=== PATIENT | female | born 1975 | race Two or more races ===

== ENCOUNTER 2024-08-16 10:29 | Emergency (ER) | payer SELFPAY ==
[2024-08-16] VITALS (11 sets, daily range): BP systolic 127–185; BP diastolic 74–95; PULSE 51–76; RESP 15–19; TEMP 36.4–37.1; O2SAT 98–100; BMI 31.6
--- NOTE | 2024-08-16 | XR_ITS ---
MRI abdomen, without contrast. MRCP Date and time of exam: August 16, 2024 1519 hours INDICATIONS: Right upper abdominal pain beginning 24 hours ago enlarged common bile duct on gallbladder sonogram August 16, 2024 Technique: Multiple axial and coronal images of the abdomen have been obtained with the Siemens 1.5T MRI scanner. Images obtained included T1 weighted transverse images, T2-weighted transverse images, T2-weighted transverse images fat-suppressed, T2 weighted haste fat suppressed transverse images, T1 weighted images, in and out of phase images, T2-weighted coronal images, breath hold, T2 weighted haze coronal images as well as T2 weighted coronal thick slab images, MRCP. Findings: Liver 18.8 cm Cholelithiasis, no gallbladder wall edema Common bile duct 6 mm 4 mm filling defect in the distal common bile duct on the 3-D reconstructions and possible additional linear sludge in the common bile duct No hydronephrosis Spleen not enlarged No ascites IMPRESSION: Cholelithiasis 4 mm stone in the common bile duct, suggest ERCP follow-up
--- NOTE | 2024-08-16 11:00 | XR_ITS ---
Examination: Abdomen sonogram, Limited Date and time of exam: August 16, 2024 1216 hours INDICATIONS: Onset right upper abdominal pain beginning 2 days ago, history gallstones Technique: Real-time felix scale transabdominal sonographic images of the upper abdomen obtained. Findings: Multiple gallstones,, gallbladder sludge Gallbladder wall 0.35 cm Common bile duct enlarged 0.7 cm no definite stones Pancreatic head 2.5 cm Liver 17.8 cm fatty infiltration Normal hepatopedal portal venous oh Patent IVC IMPRESSION: Cholelithiasis, negative for cholecystitis Enlarged common bile duct 0.7 cm, if biliary colic is a clinical consideration, recommend MRCP follow-up
--- NOTE | 2024-08-16 11:01 | PD.EDABDPN ---
ED Abdominal Pain RME/HPI General Chief Complaint: Abdominal Pain Stated complaint: RUQ ABD PAIN RADIATING TO BACK X 1 DAY Arrival date/time: 08/16/24 10:29 48-year-old female with no known medical history presents to the emergency room with a chief complaint of pain and tenderness to the right upper quadrant x 1 day Source: patient Mode of arrival: ambulatory Limitations: no limitations Related Data Allergies Allergy/AdvReac Type Severity Reaction Status Date / Time No Known Allergies Allergy Verified 08/16/24 10:32 Review of Systems Review of Systems Systems Reviewed: All systems reviewed, normal except as documented Constitutional Constitutional: Reports system reviewed and no additional complaints, except as documented, Denies fatigue, Denies fever(s), Denies headache(s) and Denies weakness Eyes Eyes: Reports system reviewed and no additional complaints, except as documented, Denies blurry vision and Denies change in vision ENT Ears, Nose, Mouth, and Throat: Reports system reviewed and no additional complaints, except as documented, Denies otalgia, Denies headache(s), Denies nasal congestion, Denies throat swelling and Denies vertigo Cardiovascular Cardiovascular: Reports system reviewed and no additional complaints, except as documented, Denies chest pain, Denies dyspnea and Denies dyspnea on exertion Respiratory Respiratory: Reports system reviewed and no additional complaints, except as documented, Denies chest congestion, Denies cough, Denies dyspnea, Denies dyspnea on exertion and Denies wheezing Gastrointestinal Gastrointestinal: Reports system reviewed and no additional complaints, except as documented, Reports abdominal pain, Reports cramping, Reports dyspepsia, Reports nausea and Denies vomiting Genitourinary Genitourinary: Reports system reviewed and no additional complaints, except as documented Musculoskeletal Musculoskeletal: Reports system reviewed and no additional complaints, except as documented and Denies back pain Integumentary/Breasts Skin/Breast: Reports system reviewed and no additional complaints, except as documented and Denies wounds Neurologic Neurologic: Reports system reviewed and no additional complaints, except as documented, Denies confusion, Denies headache(s), Denies lack of coordination, Denies vertigo and Denies weakness Psychiatric Psychiatric: Reports system reviewed and no additional complaints, except as documented, Denies anxiety, Denies confusion, Denies depression, Denies paranoia, Denies suicidal ideation and Denies tactile hallucinations Endocrine Endocrine: Reports system reviewed and no additional complaints, except as documented and Denies fatigue Hematologic/Lymphatic Hematologic/Lymphatic: Reports system reviewed and no additional complaints, except as documented and Denies lymphadenopathy Allergic/Immunologic Allergic/Immunologic: Reports system reviewed and no additional complaints, except as documented, Denies throat swelling, Denies urticaria and Denies wheezing ED Exam General Limitations: Present no limitations General appearance: Present alert and in no apparent distress Head Head exam: Present atraumatic Eye Eye exam: Present normal appearance, PERRL and EOMI ENT ENT exam: Present normal exam, normal oropharynx and mucous membranes moist Neck Neck exam: Present normal inspection, full ROM and trachea midline Chest Chest inspection: Present normal inspection and symmetric chest wall rise Respiratory Respiratory exam: Present normal lung sounds bilaterally Cardiovascular Cardiovascular exam: Present regular rate, normal rhythm and normal heart sounds Abdominal Exam Abdominal exam: Present soft, tenderness, guarding, normal bowel sounds and Live's sign; Absent distention, rebound or rigidity Abdominal tenderness: Present RUQ and moderate Extremities Exam Extremities exam: Present normal inspection and full ROM Back Exam Back exam: Present normal inspection and full ROM Neurological Exam Neurological exam: Present alert, oriented X3 and CN II-XII intact Psychiatric Psychiatric exam: Present normal affect and normal mood Skin Skin exam: Present warm, dry, intact and normal color Course Quality Measures none Orders Category Date Time Status US gall bladder Stat Exams 08/16/24 11:00 Ordered CBC Stat Lab 08/16/24 11:16 Received CMP [Comprehensive Metabolic Panel] Stat Lab 08/16/24 11:16 Received HCG Qualitative,Urine Stat Lab 08/16/24 11:00 Ordered Lipase Stat Lab 08/16/24 11:16 Received UA [Urinalysis] Stat Lab 08/16/24 11:00 Ordered Urine Culture Stat Lab 08/16/24 11:00 Ordered HYDROcodone*/APAP 5/325 [[place] 5/325] Med 08/16/24 11:00 Discontinued 1 tab PO X1 ONE Ondansetron Odt [Zofran Odt] Med 08/16/24 11:00 Discontinued 4 mg PO X1 ONE Vital Signs Vital signs: Vital Signs Temperature 98.7 F 08/16/24 10:51 Pulse Rate 76 08/16/24 10:51 Respiratory Rate 18 08/16/24 10:51 Blood Pressure 127/78 08/16/24 10:51 Pulse Oximetry (%) 99 08/16/24 10:51 Oxygen Delivery Method Room Air 08/16/24 10:51 O2 saturation 99% within normal limits Abdominal Pain MDM MDM Narrative MDM Narrative:: 48-year-old female with no known medical history presents to the emergency room with a chief complaint of pain and tenderness to the right upper quadrant x 1 day Patient data External records reviewed:: [facility] previous records Clinical information provided by:: patient Social determinants that could affect healthcare access:: none Patient has the following chronic illnesses:: No chronic illness How is presenting disease/condition affected by chronic disease/condition?: no chronic disease Evaluation data The following diagnostics were reviewed and interpreted by me:: lab results and radiology exam(s) Lab and/or radiology exams considered but not ordered:: Labs and radiology exams considered and ordered Interpretation Summary: Ultrasound gallbladder- Medications / Prescriptions Medications or Prescriptions considered but not ordered:: Medication given Medication administrations:: Medication Administration History Discontinued Medications Hydrocodone Bitart/Acetaminophen (Hydrocodone/Apap 5/325 Tablet) 1 tab PO X1 ONE Stop: 08/16/24 11:01 Last Admin: 08/16/24 11:12 Dose: 1 tab Documented By: TRUDY Ondansetron HCl (Ondansetron Odt 4 Mg Tabrap) 4 mg PO X1 ONE; Protocol Stop: 08/16/24 11:01 Last Admin: 08/16/24 11:11 Dose: 4 mg Documented By: TRUDY Medication given Consultations Consultation(s) initiated? (list below): No Diagnosis Differential diagnosis abdominal pain: abdominal pain, gastroenteritis and other (Cholelithiasis/cholecystitis) Admission Indicated Admission indicated?: not indicated Admission Request Was there a request for admission?: No Disposition Plan Disposition Plan: Discharge Discharge Attestation Discharge Attestation: The patient and all family members were given an opportunity to ask questions and understood the discharge instructions. Discharge instructions specifically effects, indications for sooner follow up or return to the emergency department, and the expected course of current diagnosis. Patient condition: Stable Discharge Plan Patient/Caregiver Discharge Instructions Print Language: Vietnamese
[2024-08-16] MEDS: ONDANSETRON ODT 4 MG TABRAP PO (11:11)
[2024-08-16] MEDS: HYDROcodone/APAP 5/325 TABLET 1 TAB PO (11:12)
[2024-08-16 11:32] LABS: Basophils # (Auto) 0.1 Thou/mm3 (0.0-0.2); Basophils % (Auto) 1 % (0-2.5); Eosinophils # (Auto) 0.1 Thou/mm3 (0.0-0.5); Eosinophils % (Auto) 1 % (0-10); Hematocrit 20.6 % (36.0-46.0); Immature Granulocytes % (Auto) 0 % (0-0); Immature Granulocytes Auto 0.02 Thou/mm3 (0.00-0.00); Lymphocytes # (Auto) 2.4 Thou/mm3 (1.0-4.8); Lymphocytes % (Auto) 31 % (10-50); Mean Corpuscular HGB Conc 24.3 g/dl (31.0-37.0); Mean Corpuscular Volume 53 fL (80-100); Monocytes # (Auto) 0.5 Thou/mm3 (0.0-0.8); Monocytes % (Auto) 6 % (0-12); Neutrophils # (Auto) 4.8 Thou/mm3 (1.8-7.7); Neutrophils % (Auto) 62 % (37-80); Nucleated Red Blood Cell # 0.04 Thou/mm3 (0.00-0.00); Nucleated Red Blood Cell % 1 /100 WBC (0); Platelet Count 435 Thou/mm3 (140-440); RDW Standard Deviation 43.1 fL (36.4-46.3); Red Blood Count 3.86 Miln/mm3 (4.00-5.20); White Blood Count 7.7 Thou/mm3 (3.6-11.0)
--- NOTE | 2024-08-16 11:42 | PD.EDRME ---
Rapid Medical Screening Exam RME Arrival date/time: 08/16/24 10:29 48-year-old female with no known medical history presents to the emergency room with a chief complaint of pain and tenderness to the right upper quadrant x 1 day I have greeted and performed a focused initial assessment of this patient. A comprehensive ED assessment and evaluation of the patient, analysis of all test results, and completion of the medical decision making process will be conducted by additional ED providers. Chief Complaint: Abdominal Pain Time Seen by Provider: 08/16/24 11:31 Vital signs: Vital Signs Temperature 98.7 F 08/16/24 10:51 Pulse Rate 76 08/16/24 10:51 Respiratory Rate 18 08/16/24 10:51 Blood Pressure 127/78 08/16/24 10:51 Pulse Oximetry (%) 99 08/16/24 10:51 Oxygen Delivery Method Room Air 08/16/24 10:51 Vital signs reviewed by provider: Yes
[2024-08-16 11:48] LABS: Alanine Aminotransferase 64 U/L (10-49); Albumin, Serum 4.5 gm/dL (3.5-5.0); Albumin/Globulin Ratio 1.3 (1.2-2.2); Alkaline Phosphatase 263 U/L (46-116); Anion Gap 10 (7-16); Aspartate Amino Transferase 174 U/L (0-34); BUN/Creatinine Ratio 18 Ratio (12-20); Bilirubin,Total 1.4 mg/dL (0.3-1.2); Blood Urea Nitrogen 9 mg/dL (9-23); Calcium 10.1 mg/dL (8.3-10.6); Calcium (Corrected) 10.1 mg/dL (8.5-10.1); Carbon Dioxide 24.9 mMol/L (20.0-31.0); Chloride 106 mMol/L (98-107); Creatinine (Component) 0.5 mg/dL (0.6-1.3); Estimated Creatinine Clearance 145.9 mL/min (>60); Globulin 3.5 gm/dL (2.3-3.5); Glucose 114 mg/dL (74-106); Lipase 33 U/L (12-53); Osmolality,Calculated 280 (275-295); Potassium 3.8 mMol/L (3.4-5.1); Sodium 141 mMol/L (136-145); eGFR > 60 See Note
[2024-08-16 13:08] LABS: INR 1.1 (0.9-1.3); Partial Thromboplastin Time 25.1 Seconds (22.0-36.0); Prothrombin Time 11.7 Seconds (9.0-12.2)
--- NOTE | 2024-08-16 13:34 | PD.EDADULT ---
ED General RME/HPI General Chief complaint: Abdominal Pain Stated complaint: RUQ ABD PAIN RADIATING TO BACK X 1 DAY Time Seen by Provider: 08/16/24 11:31 Arrival date/time: 08/16/24 10:29 CC: Right upper quadrant abdominal pain HPI ongoing for the past 24 hours radiates to the back. 4-6 on a 10 scale. Prior history of similar events 2 years ago that was resolved with viscous lidocaine and Maalox. No prior visits to this emergency room. Patient also admits that she has been tired , and not a napping type person . However in the last several months she has been more tired taking frequent naps, particularly worse in the last 2 days. Patient mitts that she has a history of anemia when off her iron pills approximately 4 years ago. Patient currently denies any chest pain shortness of breath or difficulty breathing. RME / HPI RME / HPI narrative: 08/16/24 10:29 48-year-old female with no known medical history presents to the emergency room with a chief complaint of pain and tenderness to the right upper quadrant x 1 day I have greeted and performed a focused initial assessment of this patient. A comprehensive ED assessment and evaluation of the patient, analysis of all test results, and completion of the medical decision making process will be conducted by additional ED providers. Related Data Allergies Allergy/AdvReac Type Severity Reaction Status Date / Time No Known Allergies Allergy Verified 08/16/24 10:32 Review of Systems Review of Systems Narrative Review of Systems: GEN: No fever, no chills, no weight loss EYES: No discharge, no visual changes, no pain HEENT: No ear pain, no congestion, no sore throat PULM: No shortness of breath, no cough, no congestion CV: No chest pain, no dyspnea on exertion, no palpitations GI: No nausea, no vomiting, no diarrhea, + pain, no constipation : No frequency, no urgency, no dysuria MUSC/SKEL: No joint pain, no back pain SKIN: No rash PSYCH: No hallucinations, no depression HEME/LYMPH: No easy bleeding or bruising tendencies NEURO: + weakness, no headache Past Medical History Social History SMOKING STATUS: Never smoker ED Exam Narrative Physical exam: [General: Obese not in any acute distress Head normocephalic HEENT: Within acceptable limits Neck is supple nontender Chest equal chest rise nontender to palpation Respiratory: Clear to auscultation no wheezes crackles or rubs CV: Rate rhythm is regular no murmurs rubs or clicks Abdomen is distended secondary to body habitus soft nontender no masses positive bowel sounds all 4 quadrants Rectum: Good rectal tone internal hemorrhoid guaiac is negative. Back: No CVA tenderness no spinous process tenderness from cervical spine thoracic and lumbar spine Skin: Pale, blanched conjunctiva otherwise skin is intact no petechiae rash induration ulceration or crepitus Extremities: Moving all extremity against resistance cap refill less than 2 seconds neurosensory intact Neuro: Awake alert oriented x3 Glascow coma 15 no focal deficits] Course Quality Measures none Orders Category Date Time Status MRI Screening NOW Care 08/16/24 13:30 Completed Occult Blood,Stool (Nursing) ONCE Care 08/16/24 14:47 Completed Transfuse,blood/blood products NOW Care 08/16/24 13:31 Completed Transfer to another facility [Transfer/Discharge] Stat Discharge 08/16/24 17:14 Active MR MRCP Stat Exams 08/16/24 Completed US gall bladder Stat Exams 08/16/24 11:00 Completed CBC Stat Lab 08/16/24 11:16 Completed CMP [Comprehensive Metabolic Panel] Stat Lab 08/16/24 11:16 Completed HCG Qualitative,Urine Stat Lab 08/16/24 20:35 Completed Lipase Stat Lab 08/16/24 11:16 Completed Occult Blood, Stool (LAB) Routine Lab 08/16/24 13:30 Completed PT [Prothrombin Time with INR] Stat Lab 08/16/24 12:30 Completed PTT [Partial Thromboplastin Time] Stat Lab 08/16/24 12:30 Completed Type and Screen Stat Lab 08/16/24 12:30 Completed UA [Urinalysis] Stat Lab 08/16/24 20:35 Completed Urine Culture Stat Lab 08/16/24 20:35 Received prbc [Red Blood Cells] Stat Lab 08/16/24 12:30 Completed HYDROcodone*/APAP 5/325 [[place] 5/325] Med 08/16/24 11:00 Discontinued 1 tab PO X1 ONE Lidocaine 2% Viscous [Xylocaine 2% Viscous] Med 08/16/24 13:29 Discontinued 15 ml PO X1 ONE Ondansetron Odt [Zofran Odt] Med 08/16/24 11:00 Discontinued 4 mg PO X1 ONE mg Hyd/Al Hyd/Amber Susp [Maalox Susp] Med 08/16/24 13:29 Discontinued 30 ml PO X1 ONE Vital Signs Vital signs: Vital Signs Temperature 98.7 F 08/16/24 10:51 Pulse Rate 76 08/16/24 10:51 Respiratory Rate 18 08/16/24 10:51 Blood Pressure 127/78 08/16/24 10:51 Pulse Oximetry (%) 99 08/16/24 10:51 Oxygen Delivery Method Room Air 08/16/24 10:51 [facility] Patient data External records reviewed:: [facility] previous records Clinical information provided by:: patient Social determinants that could affect healthcare access:: none Patient has the following chronic illnesses:: Anemia How is presenting disease/condition affected by chronic disease/condition?: exacerbated by Evaluation data The following diagnostics were reviewed and interpreted by me:: lab results, radiology exam(s) and EKG tracing(s) Lab and/or radiology exams considered but not ordered:: CT shows WBCs of 7.7 and a significant anemia with a hemoglobin of 5.0 and a crit of 20.6 platelets are normal. Coags within acceptable limits CMP shows no acute electrolyte imbalances renal impairment transaminitis is mildly elevated and T. bili is 1.4 Gallbladder ultrasound shows cholelithiasis without cholecystitis. Lipase is within normal limits MRCP shows choledocholithiasis at 0.4 mm. Interpretation Summary: Patient needs an ERCP and agrees to transfer. In the meantime the patient has been transfused with 2 units of match blood. Symptoms have resolved in the meantime. Medications Medications considered but not ordered:: None Medication administrations:: Medication Administration History Discontinued Medications Hydrocodone Bitart/Acetaminophen (Hydrocodone/Apap 5/325 Tablet) 1 tab PO X1 ONE Stop: 08/16/24 11:01 Last Admin: 08/16/24 11:12 Dose: 1 tab Documented By: MP Al Hydrox/Mg Hydrox/Simethicone (Mg Hyd/Al Hyd/Amber (Maalox Reg) Susp 30 Ml Udc) 30 ml PO X1 ONE Stop: 08/16/24 13:30 Last Admin: 08/16/24 14:53 Dose: 30 ml Documented By: BD Lidocaine HCl (Lidocaine Viscous 2% 15 Ml Udc) 15 ml PO X1 ONE Stop: 08/16/24 13:30 Last Admin: 08/16/24 14:53 Dose: 15 ml Documented By: BD Ondansetron HCl (Ondansetron Odt 4 Mg Tabrap) 4 mg PO X1 ONE; Protocol Stop: 08/16/24 11:01 Last Admin: 08/16/24 11:11 Dose: 4 mg Documented By: MP None Consultations Consultation(s) initiated? (list below): No Diagnosis Differential Diagnosis ED Complaint MDM: Cholecystitis choledocholithiasis pancreatitis Most likely diagnosis given after review of the tests above:: Choledocholithiasis Admission Indicated Admission indicated?: not indicated Explain why admission is indicated or not indicated:: Patient need transfer Admission Request Was there a request for admission?: No Disposition Plan Disposition Plan: Transfer Medical Decision Making Differential Diagnosis Differential Diagnosis: Cholecystitis choledocholithiasis pancreatitis Lab Data 08/16/24 11:16 08/16/24 11:16 Labs: Lab Results 08/16/24 08/16/24 08/16/24 Range/Units 11:16 12:30 13:30 WBC 7.7 (3.6-11.0) Thou/mm3 RBC 3.86 L (4.00-5.20) Miln/mm3 Hgb 5.0 L* (12.0-16.0) g/dL Hct 20.6 L* (36.0-46.0) % MCV 53 L (80-100) fL MCH 13.0 L (25.0-35.0) pg MCHC 24.3 L (31.0-37.0) g/dl RDW Std Deviation 43.1 (36.4-46.3) fL Plt Count 435 (140-440) Thou/mm3 Neut % (Auto) 62 (37-80) % Lymph % (Auto) 31 (10-50) % Gaines % (Auto) 6 (0-12) % Eos % (Auto) 1 (0-10) % Baso % (Auto) 1 (0-2.5) % Neut # (Auto) 4.8 (1.8-7.7) Thou/mm3 Lymph # (Auto) 2.4 (1.0-4.8) Thou/mm3 Gaines # (Auto) 0.5 (0.0-0.8) Thou/mm3 Eos # (Auto) 0.1 (0.0-0.5) Thou/mm3 Baso # (Auto) 0.1 (0.0-0.2) Thou/mm3 Immature Gran # (Auto) 0.02 H (0.00-0.00) Thou/mm3 Absolute Nucleated RBC 0.04 H (0.00-0.00) Thou/mm3 Immature Gran % 0 (0-0) % Nucleated RBC % 1 H (0) /100 WBC PT 11.7 (9.0-12.2) Seconds INR 1.1 (0.9-1.3) APTT 25.1 (22.0-36.0) Seconds Sodium 141 (136-145) mMol/L Potassium 3.8 (3.4-5.1) mMol/L Chloride 106 (98-107) mMol/L Carbon Dioxide 24.9 (20.0-31.0) mMol/L Anion Gap 10 (7-16) BUN 9 (9-23) mg/dL Creatinine 0.5 L (0.6-1.3) mg/dL Estim Creat Clear Calc 145.9 (>60) mL/min eGFR > 60 (60 - ) See Note BUN/Creatinine Ratio 18 (12-20) Ratio Glucose 114 H (74-106) mg/dL Calculated Osmolality 280 (275-295) Calcium 10.1 (8.3-10.6) mg/dL Corrected Calcium 10.1 (8.5-10.1) mg/dL Total Bilirubin 1.4 H (0.3-1.2) mg/dL AST 174 H (0-34) U/L ALT 64 H (10-49) U/L Alkaline Phosphatase 263 H (46-116) U/L Total Protein 8.0 (5.7-8.2) gm/dL Albumin 4.5 (3.5-5.0) gm/dL Globulin 3.5 (2.3-3.5) gm/dL Albumin/Globulin Ratio 1.3 (1.2-2.2) Lipase 33 (12-53) U/L Ur Collection Type Urine Color (Lt Yel-Yel) Urine Clarity (Clear/Hazy) Urine pH (5.0-7.0) Ur Specific Protem (1.001-1.035) Urine Protein (Neg - Trace) Urine Glucose (UA) (Negative) Urine Ketones (Negative) Urine Blood (Negative) Urine Nitrite (Negative) Urine Bilirubin (Negative) Urine Urobilinogen (Auto) (0.0-1.0) mg/dL Ur Leukocyte Esterase (Negative) Urine RBC (0-3) /hpf Urine WBC (0-5) /hpf Ur Squamous Epith Cells (0-5) /hpf Urine Bacteria (None) Urine HCG, Qual Stool Occult Blood Negative (Negative) Blood Type O Positive Antibody Screen NEGATIVE Crossmatch See Detail Blood Bank Wristband ID Yes 08/16/24 Range/Units 20:35 WBC (3.6-11.0) Thou/mm3 RBC (4.00-5.20) Miln/mm3 Hgb (12.0-16.0) g/dL Hct (36.0-46.0) % MCV (80-100) fL MCH (25.0-35.0) pg MCHC (31.0-37.0) g/dl RDW Std Deviation (36.4-46.3) fL Plt Count (140-440) Thou/mm3 Neut % (Auto) (37-80) % Lymph % (Auto) (10-50) % Gaines % (Auto) (0-12) % Eos % (Auto) (0-10) % Baso % (Auto) (0-2.5) % Neut # (Auto) (1.8-7.7) Thou/mm3 Lymph # (Auto) (1.0-4.8) Thou/mm3 Gaines # (Auto) (0.0-0.8) Thou/mm3 Eos # (Auto) (0.0-0.5) Thou/mm3 Baso # (Auto) (0.0-0.2) Thou/mm3 Immature Gran # (Auto) (0.00-0.00) Thou/mm3 Absolute Nucleated RBC (0.00-0.00) Thou/mm3 Immature Gran % (0-0) % Nucleated RBC % (0) /100 WBC PT (9.0-12.2) Seconds INR (0.9-1.3) APTT (22.0-36.0) Seconds Sodium (136-145) mMol/L Potassium (3.4-5.1) mMol/L Chloride (98-107) mMol/L Carbon Dioxide (20.0-31.0) mMol/L Anion Gap (7-16) BUN (9-23) mg/dL Creatinine (0.6-1.3) mg/dL Estim Creat Clear Calc (>60) mL/min eGFR (60 - ) See Note BUN/Creatinine Ratio (12-20) Ratio Glucose (74-106) mg/dL Calculated Osmolality (275-295) Calcium (8.3-10.6) mg/dL Corrected Calcium (8.5-10.1) mg/dL Total Bilirubin (0.3-1.2) mg/dL AST (0-34) U/L ALT (10-49) U/L Alkaline Phosphatase (46-116) U/L Total Protein (5.7-8.2) gm/dL Albumin (3.5-5.0) gm/dL Globulin (2.3-3.5) gm/dL Albumin/Globulin Ratio (1.2-2.2) Lipase (12-53) U/L Ur Collection Type Clean Catch Urine Color Yellow (Lt Yel-Yel) Urine Clarity Turbid A (Clear/Hazy) Urine pH 6.5 (5.0-7.0) Ur Specific Protem 1.012 (1.001-1.035) Urine Protein Negative (Neg - Trace) Urine Glucose (UA) Negative (Negative) Urine Ketones Negative (Negative) Urine Blood Negative (Negative) Urine Nitrite Negative (Negative) Urine Bilirubin Negative (Negative) Urine Urobilinogen (Auto) 2.0 (0.0-1.0) mg/dL Ur Leukocyte Esterase Negative (Negative) Urine RBC 3 (0-3) /hpf Urine WBC 4 (0-5) /hpf Ur Squamous Epith Cells 1 (0-5) /hpf Urine Bacteria Rare (None) Urine HCG, Qual Negative Stool Occult Blood (Negative) Blood Type Antibody Screen Crossmatch Blood Bank Wristband ID Discharge Plan Plan Patient Disposition: Xfer Acute Care [facility] Pt Being Transferred to: [facility] Prescriptions/Referrals Referrals: Tai Rodríguez MD [Primary Care Provider] - In 1 week Problem List Clinical Impression: Choledocholithiasis, Anemia, Right upper quadrant abdominal pain Patient/Caregiver Discharge Instructions Print Language: Montserratian Stand Alone Forms: Shirley Award Info., Patient Portal Info Letter
--- NOTE | 2024-08-16 13:49 | PC.NURSE ---
PT CAME IN TO ER LOBBY FOR GALLBLADDER PAIN SINCE LAST NIGHT, PAIN RIGHT SIDE RADIATES TO BACK. PT IS HERE WITH DAUGHTER AT BEDSIDE. PT WAS ADVISED HGB IS LOW AND CONSENT TO BLOOD AND CONSENT WAS SIGNED. OCCULT BLOOD DONE BY PROVIDER AND IS NEG.
[2024-08-16] MEDS: MG HYD/AL HYD/SIME (Maalox Reg) SUSP 30 ML UDC PO (14:53)
[2024-08-16] MEDS: LIDOCAINE VISCOUS 2% 15 ML UDC PO (14:53)
--- NOTE | 2024-08-16 17:13 | PC.CC ---
Addendum entered by Pepito Perez RN 08/16/24 19:36: [address] [facility] through [facility]. Called [facility], spoke to Yaneli and set up the transport. The chart picker time is 2100. Addendum entered by Pepito Perez RN 08/16/24 19:31: 1920 transfer packet is complete with CD inside including all signatures. Notified bedside nurse of the transfer packet and number to call for report. Addendum entered by Pepito Perez RN 08/16/24 18:59: 1856 received call from [facility], spoke to Amena that pt is accepted for ED to ED transfer. Accepted by Dr. Ed Hale. Call report at [phone]. Addendum entered by Pepito Perez RN 08/16/24 18:35: 1829 called [facility], spoke to Amena and initiated the transfer. Amena want to speak to Atif Lopez. Call transferred. Addendum entered by Pepito Perez RN 08/16/24 18:18: 1818 images pushed over to [facility] through [employer]. Addendum entered by Pepito Perez RN 08/16/24 18:17: 1816 clinicals sent to [facility]. Addendum entered by Pepito Perez RN 08/16/24 18:02: 1801 Called [facility] to follow up on the transfer, left VM. Addendum entered by Pepito Perez RN 08/16/24 17:39: 1736 Called [facility], spoke to Wendie to initiate the transfer. Wendie stated she will call me back after reviewing the clinicals. Addendum entered by Pepito Perez RN 08/16/24 17:31: 1731 clinicals sent to [facility]. Addendum entered by Pepito Perez RN 08/16/24 17:29: 1728 received call from [facility], spoke to Torri. She stated they are declining the pt due to capacity, they are in red zone and only taking stemi, strokes or traumas. Original Note: 1724 called [facility] to initiate the transfer, left VM. 1718 clinicals sent to [facility]. 1713 received call from ED charge nurse that pt needs to be transferred for choledocholithiasis need ERCP/GI services.
[2024-08-16 20:46] LABS: Collection Type, Urine Clean Catch
[2024-08-16 20:50] LABS: HCG Qualitative,Urine Negative
--- NOTE | 2024-08-16 20:58 | PC.NURSE ---
report called via telephone to godfrey gutierres
[2024-08-16 21:06] LABS: Bacteria,Urine Rare; Bilirubin,Urine Negative (Negative); Blood,Urine Negative (Negative); Clarity,Urine Turbid (Clear/Hazy); Color,Urine Yellow (Lt Yel-Yel); Glucose, Urine Negative (Negative); Ketones,Urine Negative (Negative); Leukocyte Esterase,Urine Negative (Negative); Nitrite,Urine Negative (Negative); PH,Urine 6.5 (5.0-7.0); Protein,Urine Negative (Neg - Trace); RBC,Urine 3 /hpf (0-3); Specific Gravity,Urine 1.012 (1.001-1.035); Squamous Epithelial Cell,Urine 1 /hpf (0-5); WBC,Urine 4 /hpf (0-5)
[2024-08-17 09:31] LABS: OBS QC OK? Yes
[2024-08-17 09:41] LABS: Occult Blood, Stool Negative (Negative)
[2024-08-17 09:42] LABS: OBS Performed By DS
== END 2024-08-16 21:40 | disposition short-term general hospital (02) ==
LOC: SERX 11:59
PROVIDERS: Nurse Practitioner Family; Emergency Provider Emergency Medicine; PCP Family Medicine
DX: D64.9 Anemia, unspecified (principal); K80.50 Calculus of bile duct without cholangitis or cholecystitis without obstruction; Z75.1 Person awaiting admission to adequate facility elsewhere
CPT/HCPCS: 36415; 36430; 76705; 80053; 81001; 81025; 82270; 83690; 85025; 85610; 85730; 86850; 86900; 86901; 86923; 87086; 99285; J3490; P9016; Q0162; S8037; 74181; A9270